=== PATIENT | male | born 1940 | race American Indian/Alaskan Native ===

== ENCOUNTER 2022-07-06 16:51 | Emergency (ER) | payer SELFPAY ==
--- NOTE | 2022-07-06 17:15 | Emergency Department Report ---
ED General Adult HPI - General Stated complaint: CARDIAC ARREST Time Seen by Provider: 07/06/22 17:10 - History of Present Illness Initial comments: The patient presents to the emergency department via EMS for cardiac arrest. Per EMS the patient was at home when he was found on the ground by his . She initially stated she had seen him 10 minutes prior to this happening but they were informed later by It was 30 minutes prior to finding. Per EMS on arrival the patient was asystole and in route he received 7 rounds of epinephrine, bicarb, calcium. The patient arrived to the emergency department receiving chest compressions and being bagged via ET tube -: Sudden Consistency: constant Improves with: none Worsens with: none Associated Symptoms: denies other symptoms Treatments Prior to Arrival: none ED Review of Systems ROS: Stated complaint: CARDIAC ARREST Other details as noted in HPI Comment: Unobtainable due to pts medical conditions ED Physical Exam - General Limitations: Other (Asystole) General appearance: other (Unresponsive) - Head Head exam: Present: atraumatic, normocephalic - Eye Eye exam: Present: other (No corneal reflex; pupils fixed and dilated) - ENT ENT exam: Present: mucous membranes dry - Respiratory Respiratory exam: Present: other (Bilateral breath sounds with bagging via ET tube) - Cardiovascular Cardiovascular Exam: Present: other (Asystole) - GI/Abdominal GI/Abdominal exam: Present: soft, distended - Extremities Exam Extremities exam: Absent: pedal edema, joint swelling - Neurological Exam Neurological exam: Present: other (GCS: 3) - Psychiatric Psychiatric exam: Present: other (Not able to assess due to the patient's condition) - Skin Skin exam: Present: dry, intact, normal color ED Medical Decision Making - Medical Decision Making ACLS protocol was followed please see code sheet Bedside ultrasound was done which showed no cardiac activity Time of 1634 Critical care attestation.: If time is entered above; I have spent that time in minutes in the direct care of this critically ill patient, excluding procedure time. ED Disposition Clinical Impression: Cardiac arrest Disposition: 20 Is pt being admited?: No Does the pt Need Aspirin: No Condition: Stable
== END 2022-07-07 06:25 ==
LOC: ED 16:51
DX: I46.9 Cardiac arrest, cause unspecified (principal)
CPT/HCPCS: 92950; 99285